=== PATIENT | male | born 1955 | race Two or more races ===

== ENCOUNTER 2019-02-12 09:25 | Inpatient (IN) | payer BC ==
[~2019-02-12] VITALS: Ht 170.2 cm; Wt 81.6 kg
--- OUTSIDE RECORDS SUMMARY | 2019-02-12 09:27 | XMS REPORT | Clinical Summary ---
Author Author [employer] Address Unknown Phone Unavailable Care Team Providers Care Commutator Undercutter Name Role Phone Asked, No Pcp PCP Unavailable Allergies No Known Allergies Medications End Date Status Medication Sig Dispensed Refills Start Date Active metFORMIN (GLUCOPHAGE) Take 500 mg 0 500 mg tablet by mouth 2 (two) times a day with meals. Active enalapril (VASOTEC) 5 MG Take 5 mg by 0 tablet mouth daily. Active naproxen (NAPROSYN) 500 Take 500 mg 0 MG tablet by mouth every 12 (twelve) hours as needed for mild pain. Active gabapentin (NEURONTIN) Take 300 mg 0 300 mg capsule by mouth nightly. Active rosuvastatin (CRESTOR) 20 Take 20 mg by 0 MG tablet mouth daily. Active Problems Problem Noted Date Chest discomfort 02/11/2018 CAD S/P percutaneous coronary angioplasty 02/10/2018 Encounters Care Team Description Date Type Specialty Agnieszka An MD Hadidi, Fayez H., MD 02/10/2018 Hospital Surgical Intensive Care - Encounter 02/11/2018 after 02/11/2018 Family History Medical History Relation Name Comments Diabetes Father Stroke and Kidney Hypertension Father Stroke and Kidney Relation Name Status Comments Father Stroke and Kidney Social History Date Tobacco Use Types Packs/Day Years Used Current Every Day Smoker 1.5 40 Smokeless Tobacco: Never Used Alcohol Use Drinks/Week oz/Week Comments No Sex Assigned at Date Recorded Not on file Industry Job Start Date Occupation Not on file Not on file Not on file Travel End Travel History Travel Start No recent travel history available. Last Filed Vital Signs Time Taken Vital Sign Reading 02/11/2018 3:50 PM CDT Blood Pressure 123/67 02/11/2018 3:50 PM CDT Pulse 71 02/11/2018 12:00 PM CDT Temperature 36.9 C (98.4 F) 02/11/2018 2:30 PM CDT Respiratory Rate 32 02/11/2018 2:15 PM CDT Oxygen Saturation 99% - Inhaled Oxygen - Concentration - Weight - - Height - - Body Mass Index - Plan of Treatment Not on file Implants Device Identifier Shelf Expiration Date Model / Serial / Lot Implanted Type Area Manufactur er [id number] / / System Athrctmy Rotn 0.58in 135cm Cardiovasc N/A: N/A BSC 1.5mm [address]ink [address] - [id number] ular INTERVENTI Implanted: 02/11/2018 (Quantity not Implants ONAL on file) CARDIOLOGY [id number] / / Stent Cornorary Syst Synergy (Mr) Coronary N/A: N/A BSC 2.50mm X 32mm - [id number] Stents INTERVENTI Implanted: 02/10/2018 (Quantity not ONAL on file) CARDIOLOGY Procedures Comments Procedure Name Priority Date/Time Associated Diagnosis POC GLUCOSE Routine 02/11/2018 12:26 PM CDT POC GLUCOSE Routine 02/11/2018 7:36 AM CDT ZZESTIMATED GFR Routine 02/11/2018 4:25 AM CDT MAGNESIUM LEVEL Routine 02/11/2018 4:25 AM CDT PHOSPHORUS LEVEL Routine 02/11/2018 4:25 AM CDT BASIC METABOLIC PANEL Routine 02/11/2018 4:25 AM CDT HC COMPLETE BLD COUNT Routine 02/11/2018 W/AUTO DIFF 4:25 AM CDT after 02/11/2018 Results * POC glucose (02/11/2018 12:26 PM CDT) Only the most recent of 2 results within the time period is included. [facility] POC glucose 225 (H) 65 - 100 mg/dL [facility] Comment: OF PATHOLOGY Meter ID: [id number] AND GENOMIC Blasting Helper: Oneyda Rodriguez MEDICINE Specimen Performing Organization Address City/State/Zipcode Phone Number [facility] [place] [address] [place] [address] PATHOLOGY AND GENOMIC MEDICINE * Estimated GFR (02/11/2018 4:25 AM CDT) [facility] GFR Non Af Amer 75 mL/min/1.73 m2 [facility] [place]Y AND GENOMIC MEDICINE GFR Af Amer >90 mL/min/1.73 m2 [facility] Comment: OF PATHOLOGY Chronic kidney disease: <60 AND GENOMIC mL/min/1.73m2 MEDICINE Kidney failure: <15 mL/min/1.73m2 The estimated GFR is calculated from the IDMS-traceable Modification of Diet in Renal Disease Equation. The accuracy of the calculation is poor when the creatinine is normal. Calculated values >90 mL/min/1.73m2 are not reported. This equation has not been validated in children (<18 years), women, the elderly (>70 years), or ethnic groups other than Caucasians and Americans. Specimen Plasma specimen Performing Organization Address City/State/Zipcode Phone Number [place] [address] [place] [address] PATHOLOGY AND GENOMIC MEDICINE * CBC with platelet and differential (02/11/2018 4:25 AM CDT) [facility] WBC 6.5 4.2 - 11.0 k/uL [facility] [place]Y AND GENOMIC MEDICINE RBC 4.36 4.04 - 5.86 m/uL [facility] PATHOLOGY AND GENOMIC MEDICINE HGB 11.8 (L) 13.0 - 17.3 g/dL [facility] [place]Y AND GENOMIC MEDICINE HCT 37.6 34.0 - 45.0 % [facility]Y AND GENOMIC MEDICINE MCV 86.2 80.0 - 98.0 fL [facility]Y AND GENOMIC MEDICINE MCH 27.1 27.0 - 34.0 pg [facility]OLOGY AND GENOMIC MEDICINE MCHC 31.4 (L) 31.5 - 36.5 g/dL [facility] [place]Y AND GENOMIC MEDICINE RDW - SD 44.3 37.0 - 51.0 fL [facility]Y AND GENOMIC MEDICINE MPV 11.4 (H) 7.4 - 10.4 fL [facility]Y AND GENOMIC MEDICINE Platelet count 134 (L) 150 - 400 k/uL [facility]Y AND GENOMIC MEDICINE Nucleated RBC 0.00 /100 WBC [facility] [place]Y AND GENOMIC MEDICINE Neutrophils 63.6 36.0 - 66.0 % [facility]Y AND GENOMIC MEDICINE Lymphocytes 22.6 (L) 24.0 - 44.0 % [facility] DEPARTMENT OF PATHOLOGY AND GENOMIC MEDICINE Monocytes 9.9 (H) 0.0 - 6.0 % [facility] [place]Y AND GENOMIC MEDICINE Eosinophils 2.3 0.0 - 6.0 % [facility] [place]OLOGY AND GENOMIC MEDICINE Basophils 1.1 0.0 - 1.2 % [facility] [place]OLOGY AND GENOMIC MEDICINE Immature 0.5 0.0 - 1.0 % [facility] granulocytes OF PATHOLOGY AND GENOMIC MEDICINE Specimen Blood Performing Organization Address City/[facility] [place] [address] PATHOLOGY AND GENOMIC MEDICINE * Phosphorus level (02/11/2018 4:25 AM CDT) Phosphorus 3.1 2.5 - 4.5 mg/dL [facility] [place]Y AND GENOMIC MEDICINE Specimen Plasma specimen Performing Organization Address City/[facility] [place] [address] PATHOLOGY AND [facility] * Magnesium level (02/11/2018 4:25 AM CDT) Magnesium 2.00 1.60 - 2.40 mg/dL [facility] [place]OLOGY AND GENOMIC MEDICINE Specimen Plasma specimen Performing Organization Address [facility] [place] [address] [facility] * Basic metabolic panel (02/11/2018 4:25 AM CDT) Sodium 140 135 - 150 mEq/L [facility] [place]OLOGY AND GENOMIC MEDICINE Potassium 4.9 3.5 - 5.0 mEq/L [facility] [place]OLOGY AND GENOMIC MEDICINE Chloride 106 100 - 109 mEq/L [facility]OLOGY AND GENOMIC MEDICINE CO2 27 24 - 32 mmol/L [facility]OLOGY AND GENOMIC MEDICINE Anion gap 7@ANIO 7 - 15 mEq/L [facility]OLOGY AND GENOMIC MEDICINE BUN 13 7 - 18 mg/dL [facility]OLOGY AND GENOMIC MEDICINE Creatinine 1.0 0.8 - 1.5 mg/dL [facility]Y AND GENOMIC MEDICINE Glucose 123 (H) 65 - 100 mg/dL [facility]Y AND GENOMIC MEDICINE Calcium 9.2 8.6 - 10.7 mg/dL [facility] [place]OLOGY AND GENOMIC MEDICINE Specimen Plasma specimen Performing Organization Address City/[facility] Cent[facility] Phone Number [place] [phone] [place] [address] PATHOLOGY AND GENOMIC MEDICINE after 02/11/2018 Insurance Type Payer Benefit Subscriber ID Effective Phone Address Plan / Dates Group Exchange BCBS EXCHANGE BLUE xxxxxxxxxxxx 2018-P ADVANTAGE resent HMO EXCH Advance Directives Patient has advance care planning documents, and code status on file. For more i nformation, please contact: Nate Alvarado [address] [place] [address] Date Inactivated Comments Code Status Date Activated 02/11/2018 8:42 PM Full Code 02/11/2018 3:14 PM Code Status decision reached by: Patient
[2019-02-12 10:55] LABS: BASOPHILS # (AUTO) 0.1 (0.0-0.1); BASOPHILS % 0.8 % (0.0-1.0); EOSINOPHILS # (AUTO) 0.2 (0.0-0.4); EOSINOPHILS % 3.1 % (0.0-6.0); HEMATOCRIT 29.8 % (38.2-49.6); HEMOGLOBIN 9.6 g/dL (14.0-18.0); LYMPHOCYTES # (AUTO) 1.6 (1.0-3.2); LYMPHOCYTES % 27.8 % (18.0-39.1); MEAN CORPUSCULAR HEMOGLOBIN 28.2 pg (28-32); MEAN CORPUSCULAR HGB CONC 32.2 g/dL (31-35); MEAN CORPUSCULAR VOLUME 87.4 fL (81-99); MONOCYTES # (AUTO) 0.5 (0.2-0.8); MONOCYTES % 8.6 % (4.4-11.3); NEUTROPHILS # (AUTO) 3.5 (2.1-6.9); NEUTROPHILS % 59.2 % (38.7-80.0); PLATELET COUNT 173 x10e3/uL (140-360); RED BLOOD COUNT 3.41 x10e6/uL (4.3-5.7); RED CELL DISTRIBUTION WIDTH 14.7 % (11.7-14.4)
[2019-02-12 11:05] LABS: INR 1.01; PARTIAL THROMBOPLASTIN TIME 28.7 seconds (23.8-35.5); PROTHROMBIN TIME 13.8 seconds (11.9-14.5)
[2019-02-12 11:14] LABS: ALANINE AMINOTRANSFERASE 15 IU/L (0-55); ALBUMIN 3.9 g/dL (3.5-5.0); ALBUMIN/GLOBULIN RATIO 1.4 (0.8-2.0); ALKALINE PHOSPHATASE 64 IU/L (40-150); ANION GAP 13.4 mmol/L (8-16); BLOOD UREA NITROGEN 25 mg/dL (7-26); BUN/CREATININE RATIO 16 (6-25); CALCIUM 10.1 mg/dL (8.4-10.2); CARBON DIOXIDE 23 mmol/L (22-29); CHLORIDE 106 mmol/L (98-107); CREATINE KINASE 43 IU/L (30-200); CREATININE, SERUM 1.53 mg/dL (0.72-1.25); EST GLOMERULAR FILTRATION RATE 46 ML/MIN (60-); GLUCOSE 99 mg/dL (74-118); SODIUM 136 mmol/L (136-145)
[2019-02-12 11:21] LABS: POTASSIUM 6.4 mmol/L (3.5-5.1)
[2019-02-12] MEDS ORDERED: DEXTROSE 50% SYRINGE 50 ML IV STA (11:27)
[2019-02-12] MEDS ORDERED: SOD POLYSTYRENE SULFONATE SUSP 15 GM/60 ML BTL PO ONE (11:30)
[2019-02-12] MEDS ORDERED: INSULIN REGULAR, HUMAN 100 UNIT/1 ML 3ML VIAL IV ONE (11:30)
[2019-02-12] MEDS ORDERED: CLOPIDOGREL75 MG PO (12:37)
[2019-02-12] MEDS ORDERED: GEMFIBROZIL600 MG PO (12:37)
[2019-02-12] MEDS ORDERED: LOPRESSOR25 MG PO (12:37)
[2019-02-12] MEDS ORDERED: METFORMIN HCL1000 MG PO (12:37)
[2019-02-12] MEDS ORDERED: ISOSORBIDE MONO10 MG PO (12:37)
[2019-02-12] MEDS ORDERED: ATORVASTATIN CA40 MG PO (12:37)
[2019-02-12] MEDS ORDERED: VASOTEC5 MG PO (12:37)
[2019-02-12] MEDS ORDERED: GABAPENTIN300 MG PO (12:37)
[2019-02-12] MEDS ORDERED: PANTOPRAZOLE SO40 MG PO (12:37)
[2019-02-12] MEDS ORDERED: NAPROXEN500 MG PO (12:37)
--- OUTSIDE RECORDS SUMMARY | 2019-02-12 13:06 | XMS REPORT | Clinical Summary ---
Author Author [employer] Address Unknown Phone Unavailable Care Team Providers Care Can Bander Operator Name Role Phone Asked, No Pcp PCP [...] / Lot Implanted Type Area Manufactur er [id number] / / System Athrctmy Rotn 0.58in 135cm Cardiovasc N/A: N/A BSC 1.5mm [address] - [id number] ular INTERVENTI Implanted: 02/11/2018 (Quantity not Implants ONAL on file) CARDIOLOGY [id number] / / Stent Cornorary Syst Synergy (Mr) Coronary N/A: N/A BSC 2.50mm X 32mm - [id number] Stents INTERVENTI Implanted: 02/10/2018 (Quantity not ONAL [...] results within the time period is included. [facility] POC glucose 225 (H) 65 - 100 mg/dL [facility] Comment: OF PATHOLOGY Meter ID: [id number] AND GENOMIC Field Liability Generalist: Oneyda Rodriguez MEDICINE Specimen Performing Organization Address City/State/Zipcode Phone Number [facility] DE[facility] OF [address] [place] [address] PATHOLOGY AND GENOMIC MEDICINE * Estimated GFR (02/11/2018 4:25 AM CDT) [facility] GFR Non Af Amer 75 mL/min/1.73 m2 [facility] OF PATHOLOGY AND GENOMIC MEDICINE GFR Af Amer >90 mL/min/1.73 m2 [facility] Comment: OF PATHOLOGY Chronic kidney disease: [...] specimen Performing Organization Address City/State/Zipcode Phone Number [place] [phone] [place] [address] PATHOLOGY AND GENOMIC MEDICINE * CBC with platelet and differential (02/11/2018 4:25 AM CDT) [facility] WBC 6.5 4.2 - 11.0 k/uL [facility] OF PATHOLOGY AND GENOMIC MEDICINE RBC 4.36 4.04 - 5.86 m/uL [facility] PATHOLOGY AND GENOMIC MEDICINE HGB 11.8 (L) 13.0 - 17.3 g/dL [facility] OF PATHOLOGY AND GENOMIC MEDICINE HCT 37.6 34.0 - 45.0 % [facility] OF PATHOLOGY AND GENOMIC MEDICINE MCV 86.2 80.0 - 98.0 fL [facility] OF PATHOLOGY AND GENOMIC MEDICINE MCH 27.1 27.0 - 34.0 pg [facility] OF PATHOLOGY AND GENOMIC MEDICINE MCHC 31.4 (L) 31.5 - 36.5 g/dL [facility] OF PATHOLOGY AND GENOMIC MEDICINE RDW - SD 44.3 37.0 - 51.0 fL [facility]MENT OF PATHOLOGY AND GENOMIC MEDICINE MPV 11.4 (H) 7.4 - 10.4 fL [facility] OF PATHOLOGY AND GENOMIC MEDICINE Platelet count 134 (L) 150 - 400 k/uL [facility]PARTMENT OF PATHOLOGY AND GENOMIC MEDICINE Nucleated RBC 0.00 /100 WBC [facility] OF PATHOLOGY AND GENOMIC MEDICINE Neutrophils 63.6 36.0 - 66.0 % [facility]MENT OF PATHOLOGY AND GENOMIC MEDICINE Lymphocytes 22.6 (L) 24.0 - 44.0 % [facility] DEPARTMENT OF PATHOLOGY AND GENOMIC MEDICINE Monocytes 9.9 (H) 0.0 - 6.0 % [facility] DE[facility]MENT OF PATHOLOGY AND GENOMIC MEDICINE Eosinophils 2.3 0.0 - 6.0 % [facility]MENT OF PATHOLOGY AND GENOMIC MEDICINE Basophils 1.1 0.0 - 1.2 % [facility]MENT OF PATHOLOGY AND GENOMIC MEDICINE Immature 0.5 0.0 - 1.0 % [facility] granulocytes OF PATHOLOGY AND GENOMIC MEDICINE Specimen Blood Performing Organization Address City/[facility] Hospital[place] [address] PATHOLOGY AND GENOMIC MEDICINE * Phosphorus level (02/11/2018 4:25 AM CDT) Phosphorus 3.1 2.5 - 4.5 mg/dL [facility] OF PATHOLOGY AND GENOMIC MEDICINE Specimen Plasma specimen Performing Organization Address City/[facility] [place] [address] PATHOLOGY AND [facility] * Magnesium level (02/11/2018 4:25 AM CDT) Magnesium 2.00 1.60 - 2.40 mg/dL [facility]MENT OF PATHOLOGY AND GENOMIC MEDICINE Specimen Plasma specimen Performing Organization Address [facility] [place] [address] PATHOLOGY [facility] * Basic metabolic panel (02/11/2018 4:25 AM CDT) Sodium 140 135 - 150 mEq/L [facility]PARTMENT OF PATHOLOGY AND GENOMIC MEDICINE Potassium 4.9 3.5 - 5.0 mEq/L [facility]MENT OF PATHOLOGY AND GENOMIC MEDICINE Chloride 106 100 - 109 mEq/L [facility] OF PATHOLOGY AND GENOMIC MEDICINE CO2 27 24 - 32 mmol/L [facility]MENT OF PATHOLOGY AND GENOMIC MEDICINE Anion gap 7@ANIO 7 - 15 mEq/L [facility] DE[facility]MENT OF PATHOLOGY AND GENOMIC MEDICINE BUN 13 7 - 18 mg/dL [facility]MENT OF PATHOLOGY AND GENOMIC MEDICINE Creatinine 1.0 0.8 - 1.5 mg/dL [facility]MENT OF PATHOLOGY AND GENOMIC MEDICINE Glucose 123 (H) 65 - 100 mg/dL [facility]MENT OF PATHOLOGY AND GENOMIC MEDICINE Calcium 9.2 8.6 - 10.7 mg/dL [facility] OF PATHOLOGY AND GENOMIC MEDICINE Specimen Plasma specimen Performing Organization Address City/[facility] Phone Number [place] [phone] [place] [address] PATHOLOGY AND GENOMIC MEDICINE after 02/11/2018 Insurance Type Payer Benefit Subscriber ID Effective Phone Address Plan / Dates Group Exchange BCBS EXCHANGE BLUE xxxxxxxxxxxx 2018-P ADVANTAGE resent HMO EXCH Advance Directives Patient has advance care planning documents, and code status on file. For more i nformation, please contact: Nate Alvarado [address] [place] [address] Date Inactivated Comments Code Status Date Activated 02/11/2018 8:42 PM Full Code 02/11/2018 3:14 PM Code Status decision reached by: Patient
[2019-02-12] MEDS ORDERED: DEXTROSE 50% SYRINGE 50 ML IV PRN (14:30)
[2019-02-12 14:45] VITALS: BP 108/60
--- NOTE | 2019-02-12 15:46 | Diagnostic Imaging Report ---
EXAMINATION: PA and lateral views of the chest. COMPARISON: None CLINICAL HISTORY: Lower GI bleed DISCUSSION: Lungs are well-inflated and without focal airspace consolidation, pleural effusion, or pneumothorax. Cardiomediastinal contour and pulmonary vasculature are within normal limits. No acute osseous abnormality. IMPRESSION: No acute cardiopulmonary abnormalities. Signed by: Dr. Marck Sexton M.D. on 02/12/2019 3:43 PM
[2019-02-12 16:13] VITALS: BP 108/60
[2019-02-12] MEDS: INSULIN REGULAR, HUMAN 100 UNIT/1 ML 3ML VIAL SQ SCH ×2 (16:30→20:55)
[2019-02-12 16:41] LABS: ANION GAP 12.8 mmol/L (8-16); CALCIUM 9.6 mg/dL (8.4-10.2); CREATININE, SERUM 1.44 mg/dL (0.72-1.25); POTASSIUM 4.8 mmol/L (3.5-5.1)
[2019-02-12] MEDS ORDERED: PROTONIX 200MG/SODIUM CHLORIDE 0.9% 250 ML BAG IV SCH (16:45)
[2019-02-12] MEDS ORDERED: FUROSEMIDE INJ 10 MG/ML 2 ML VIAL IV SCH (16:45)
[2019-02-12] MEDS ORDERED: SODIUM CHLORIDE 0.9% 250ML 250 ML IV ONE (16:45)
[2019-02-12 19:09] VITALS: BP 127/58
[2019-02-12 19:22] VITALS: BP 127/58
[2019-02-12 20:02] LABS: ANION GAP 11.8 mmol/L (8-16); CALCIUM 9.6 mg/dL (8.4-10.2); CREATININE, SERUM 1.45 mg/dL (0.72-1.25); POTASSIUM 4.8 mmol/L (3.5-5.1)
[2019-02-12] MEDS: ATORVASTATIN 40 MG TAB PO SCH (20:55)
[2019-02-12 21:13] LABS: HEMATOCRIT 26.8 % (38.2-49.6); HEMOGLOBIN 8.7 g/dL (14.0-18.0)
[2019-02-12] MEDS: PANTOPRAZOL 40MG/SOD CHL 0.9% 50 ML IV SCH (21:56)
[2019-02-12 23:25] VITALS: BP 116/56
[2019-02-13] VITALS (7 sets, daily range): BP systolic 91–140; BP diastolic 53–64
[2019-02-13] MEDS: PANTOPRAZOL 40MG/SOD CHL 0.9% 50 ML IV SCH ×6 (00:30→23:33)
[2019-02-13 06:42] LABS: HEMATOCRIT 28.5 % (38.2-49.6); HEMOGLOBIN 9.2 g/dL (14.0-18.0)
[2019-02-13 07:20] LABS: FOLATE 16.4 ng/mL (7.0-15.4)
[2019-02-13] MEDS: INSULIN REGULAR, HUMAN 100 UNIT/1 ML 3ML VIAL SQ SCH ×4 (07:30→20:20)
--- NOTE | 2019-02-13 07:53 | Consultation ---
DATE OF CONSULTATION: 02/13/2019 HISTORY OF PRESENT ILLNESS: The patient is a pleasant 63-year-old gentleman, who has underlying history of long-standing diabetes, hypertension, coronary artery disease, status post PCI and stenting. Denies prior history of any renal insufficiency or kidney stone disease, presented with bleeding per rectum. He is being worked up for GI bleed. Currently lying supine in no apparent distress. Denies any urinary complaints. Denies shortness of breath, nausea, or vomiting. He has had prior history of hemorrhoids many years ago. SOCIAL HISTORY: He is . Smokes tobacco. Denies drinking. FAMILY HISTORY: Significant for hypertension. ALLERGIES: NO APPARENT DRUG ALLERGIES. CURRENT MEDICATIONS: The patient is on insulin, metoprolol 25 mg daily, isosorbide 10 mg daily, gemfibrozil 600 mg p.o. daily, which I am going to stop, gabapentin 300 mg daily, enalapril 5 mg p.o. daily, atorvastatin 40 mg at bedtime, and pantoprazole IV. PHYSICAL EXAMINATION: GENERAL: Awake, alert, lying supine in no apparent distress. VITAL SIGNS: Blood pressure of 127/50, pulse rate 70, and afebrile. HEAD AND NECK: Cornea clear. Oral mucosa moist. Neck veins are flat. LUNGS: Occasional end-expiratory rhonchi. Occasional rales at right base. HEART: S1, S2 audible. ABDOMEN: Soft, nontender. No apparent visceromegaly. EXTREMITIES: Lower extremity, no edema. IMPRESSION AND PLAN: Hyperkalemia, resolved. Acute kidney injury. Serum creatinine 1.45, potassium down to 4.8, hemoglobin 9.2 and stable. Coags within normal limits. The etiology of acute kidney injury is multifactorial, muscular hypertensive, diabetic nephropathy with an acute injury, renal injury component. Appears relatively dry on exam. We will start IV fluids in the form of normal saline. Continue with enalapril for now. Discontinue gemfibrozil for his long-standing renal side effects. Discussed with the patient in detail. Please see orders. MD ANITRA Hillman/[facility] /[id number]
[2019-02-13 08:10] LABS: FERRITIN 18.73 ng/mL (21.81-274.66)
[2019-02-13] MEDS ORDERED: NON-FORMULARY MEDICATION (Atorvastatin Calcium 40 MG) PO SCH (09:00)
[2019-02-13] MEDS ORDERED: GEMFIBROZIL 600 MG TAB PO SCH (09:00)
[2019-02-13] MEDS ORDERED: NON-FORMULARY MEDICATION (Isosorbide Mononitrate 10 MG) PO SCH (09:00)
[2019-02-13] MEDS ORDERED: PANTOPRAZOLE 40 MG 10ML VIAL IV SCH (09:00)
[2019-02-13] MEDS: SODIUM CHLORIDE 0.9% 1000ML 1,000 ML IV SCH ×2 (09:00→18:33)
[2019-02-13] MEDS: ISOSORBIDE DINITRATE 20 MG TAB PO SCH (09:20)
[2019-02-13] MEDS: METOPROLOL TARTRATE 25 MG TAB PO SCH (09:23)
[2019-02-13] MEDS: GABAPENTIN 300 MG CAP PO SCH (09:23)
[2019-02-13] MEDS: ENALAPRIL MALEATE 5 MG TAB PO SCH (09:23)
[2019-02-13 11:50] LABS: HEMATOCRIT 25.7 % (38.2-49.6); HEMOGLOBIN 8.4 g/dL (14.0-18.0)
[2019-02-13 13:44] LABS: WBC,FECAL (FECAL LACTOFERRIN) POSITIVE (NEGATIVE)
[2019-02-13 14:52] LABS: C DIFFICILE TOXIN A&B AMP PROB NEGATIVE (NEGATIVE)
[2019-02-13 17:56] LABS: HEMATOCRIT 27.1 % (38.2-49.6); HEMOGLOBIN 8.5 g/dL (14.0-18.0)
[2019-02-13 19:25] LABS: BILIRUBIN,URINE NEGATIVE (NEGATIVE); CLARITY,URINE CLEAR (CLEAR); COLOR,URINE YELLOW (YELLOW); KETONES,URINE NEGATIVE (NEGATIVE); LEUKOCYTE ESTERASE ,URINE NEGATIVE (NEGATIVE); NITRITE,URINE NEGATIVE (NEGATIVE); PROTEIN,URINE DIPSTICK NEGATIVE (NEGATIVE); URINE UROBILINOGEN 0.2 mg/dL (0.2 - 1)
[2019-02-13 19:39] LABS: BACTERIA,URINE RARE /HPF; EPITHELIAL CELLS,URINE RARE /LPF; RBC,URINE 0-5 /HPF (0-5); WBC,URINE (MAN) 0-5 /HPF (0-5)
[2019-02-13 20:13] LABS: CREATININE,URINE RANDOM 49.01 mg/dL (63-166)
[2019-02-13 20:15] LABS: TOTAL PROTEIN, URINE < 6.8 mg/dL (1-14)
[2019-02-13] MEDS: ATORVASTATIN 40 MG TAB PO SCH (20:20)
[2019-02-14] VITALS (10 sets, daily range): BP systolic 103–172; BP diastolic 53–83
[2019-02-14] MEDS ORDERED: IRON SUCROSE 100 MG in SODIUM CHLORIDE 0.9% 100 ML 100 ML IV SCH (00:30)
[2019-02-14 00:35] LABS: HEMATOCRIT 24.9 % (38.2-49.6)
[2019-02-14] MEDS: PANTOPRAZOL 40MG/SOD CHL 0.9% 50 ML IV SCH ×4 (04:13→19:26)
[2019-02-14] MEDS: SODIUM CHLORIDE 0.9% 1000ML 1,000 ML IV SCH ×2 (04:43→15:08)
[2019-02-14 06:19] LABS: HEMATOCRIT 26.2 % (38.2-49.6); HEMOGLOBIN 8.2 g/dL (14.0-18.0)
[2019-02-14 06:43] LABS: ALBUMIN 3.3 g/dL (3.5-5.0); ALBUMIN/GLOBULIN RATIO 1.3 (0.8-2.0); ANION GAP 10.8 mmol/L (8-16); CREATININE, SERUM 1.37 mg/dL (0.72-1.25); POTASSIUM 4.8 mmol/L (3.5-5.1)
[2019-02-14] MEDS: INSULIN REGULAR, HUMAN 100 UNIT/1 ML 3ML VIAL SQ SCH ×4 (07:30→20:40)
[2019-02-14] MEDS: ISOSORBIDE DINITRATE 20 MG TAB PO SCH (09:15)
[2019-02-14] MEDS: METOPROLOL TARTRATE 25 MG TAB PO SCH (09:15)
[2019-02-14] MEDS: GABAPENTIN 300 MG CAP PO SCH (09:15)
[2019-02-14] MEDS: ENALAPRIL MALEATE 5 MG TAB PO SCH (09:16)
[2019-02-14] MEDS: CYANOCOBALAMIN 1,000 MCG TAB PO SCH (09:16)
[2019-02-14] MEDS: IRON SUCROSE 100 MG in SODIUM CHLORIDE 0.9% 100 ML 100 ML IV SCH (10:00)
[2019-02-14 12:07] LABS: HEMATOCRIT 25.2 % (38.2-49.6); HEMOGLOBIN 8.1 g/dL (14.0-18.0)
[2019-02-14] MEDS ORDERED: PEG (High)/E-LYTE SOLN 4,000 ML BTL PO ONE (14:00)
[2019-02-14] MEDS: ATORVASTATIN 40 MG TAB PO SCH (20:39)
[2019-02-15] VITALS (7 sets, daily range): BP systolic 129–141; BP diastolic 27–65
[2019-02-15] MEDS: PANTOPRAZOL 40MG/SOD CHL 0.9% 50 ML IV SCH ×5 (00:30→21:00)
[2019-02-15 00:37] LABS: HEMOGLOBIN 7.7 g/dL (14.0-18.0)
[2019-02-15] MEDS: SODIUM CHLORIDE 0.9% 1000ML 1,000 ML IV SCH ×3 (01:18→16:33)
[2019-02-15 05:59] LABS: HEMATOCRIT 24.8 % (38.2-49.6); HEMOGLOBIN 7.7 g/dL (14.0-18.0)
[2019-02-15] MEDS: INSULIN REGULAR, HUMAN 100 UNIT/1 ML 3ML VIAL SQ SCH ×4 (07:30→21:00)
[2019-02-15] MEDS: ISOSORBIDE DINITRATE 20 MG TAB PO SCH (09:00)
[2019-02-15] MEDS: ENALAPRIL MALEATE 5 MG TAB PO SCH (09:00)
[2019-02-15] MEDS: GABAPENTIN 300 MG CAP PO SCH (09:00)
[2019-02-15] MEDS: CYANOCOBALAMIN 1,000 MCG TAB PO SCH (09:00)
[2019-02-15] MEDS: METOPROLOL TARTRATE 25 MG TAB PO SCH (09:00)
--- NOTE | 2019-02-15 10:16 | Diagnostic Imaging Report ---
EXAM: Renal Ultrasound INDICATION: RODERICK. COMPARISON: None TECHNIQUE: Transverse and longitudinal images of the kidneys and bladder were obtained. FINDINGS: Right Kidney: Length: Measures 12.5 x 5.5 x 5.2 cm Appearance: Normal echogenicity. Collecting system: No hydronephrosis Stones: None Cyst/Mass: No evidence of solid mass. There is a predominately simple appearing anechoic cyst in the upper pole, measuring up to 5.5 cm, with a possible internal calcification versus artifact. There is a simple appearing anechoic mid pole cyst, measuring up to 1.7 cm. Left Kidney: Length: Measures 12.5 x 5.4 x 4.4 cm Appearance: Normal echogenicity. Collecting system: No hydronephrosis Stones: None Cyst/Mass: No evidence of solid mass. There is a minimally complex cyst in the midpole, measuring up to 2.9 cm which contains an internal septation with possible calcification. Bladder: Unremarkable in appearance. Left ureteral jet is visualized. Right ureteral jet is not visualized. The prevoid volume is 215 cc. Prostate: Measures 2.5 x 2.4 x 2.0 cm. IMPRESSION: No evidence of hydronephrosis. Bilateral renal cysts as above with minimal complexity in the left mid pole. Suggest follow-up ultrasound in 6 months. Signed by: Dr. Naima Hazel MD on 02/15/2019 10:12 AM
[2019-02-15] MEDS: IRON SUCROSE 100 MG in SODIUM CHLORIDE 0.9% 100 ML 100 ML IV SCH ×2 (13:51→14:03)
[2019-02-15 14:11] LABS: HEMATOCRIT 25.5 % (38.2-49.6); HEMOGLOBIN 8.2 g/dL (14.0-18.0)
[2019-02-15] MEDS ORDERED: GLUCAGON FOR INJ 1 MG VIAL ONE (17:41)
[2019-02-15] MEDS ORDERED: PROPOFOL IV EMULSION 10 MG/ML 50 ML VIAL ONE (17:41)
[2019-02-15] MEDS ORDERED: LIDOCAINE HCL 2% LOCAL INJ 5 ML SDV VIAL INJ ONE (17:41)
[2019-02-15] MEDS ORDERED: HYOSCYAMINE SULFATE 0.5 MG/ML INJ ONE (17:41)
[2019-02-15] MEDS ORDERED: EPHEDRINE SULFATE INJ 50 MG/10 ML SYR ONE (17:41)
[2019-02-15] MEDS ORDERED: PHENYLEPHRINE HCL 1% 10 MG/ML VIAL ONE (17:41)
[2019-02-15] MEDS ORDERED: MIDAZOLAM HCL 2 MG/2 ML VIAL ONE (19:01)
[2019-02-15] MEDS ORDERED: FENTANYL CITRATE/PF 100MCG/2 ML INJ ONE (19:01)
[2019-02-15 20:32] LABS: HEMATOCRIT 24.9 % (38.2-49.6); HEMOGLOBIN 7.8 g/dL (14.0-18.0)
--- NOTE | 2019-02-15 20:44 | Operative Report ---
DATE OF PROCEDURE: 02/15/2019 SURGEON: Clark Leal MD PROCEDURES: EGD with biopsies and a colonoscopy with biopsies and fulguration with a size 10-Serbian gold probe and hemoclipping. INDICATIONS FOR EGD: Dyspepsia. INDICATIONS FOR COLONOSCOPY: Rectal bleeding. MEDICATIONS: The patient was done under MAC, please see anesthesiologist's note. PROCEDURE IN DETAIL: With the patient in left lateral decubitus position, a flexible fiberoptic Olympus gastroscope was introduced into the esophagus under direct visualization without any difficulty. There was some patchy erythema noted in distal esophagus. The scope was then advanced with ease into the stomach traversing a small hiatal hernia. Mucosa overlying the antrum and the body revealed some patchy erythema and low-grade edema and biopsies were obtained, sent to stain for H. pylori. The pylorus was of normal contour and shape, it was intubated with ease and the scope was advanced all the way to the second portion of the duodenum. Biopsies were obtained from the second portion as well as from the duodenal bulb to rule out sprue. The scope was then withdrawn back into the stomach and retroflexed mucosa overlying the fundus and cardia appeared to be within normal limits. The scope was then straightened out, it was subsequently withdrawn. The patient tolerated the procedure well. IMPRESSION: 1. Distal esophagitis, mild. 2. Small hiatal hernia. 3. Gastritis, biopsied. Biopsies sent to stain for Helicobacter pylori. 4. Rule out sprue. PLAN: Follow up histology. Initiate Protonix 40 mg one p.o. q.a.m. a.c. PROCEDURE IN DETAIL: The patient was then turned around and after adequate lubrication of the anal canal, a flexible fiberoptic Olympus colonoscope was inserted into the rectum with ease and advanced all the way to the cecum. Scattered diverticular disease was noted throughout, but was more pronounced in the left colon. The mucosa overlying the cecum appeared to be within normal limits. There was an ulcerated AVM noted in the proximal ascending colon that was biopsied and it bled persistently post biopsy. Site was fulgurated to a size 10-Serbian gold probe and hemoclipped to size 16 hemoclip. Other than for diverticulosis in the ascending and the transverse as well as the proximal descending appeared to be within normal limits. The distal descending and sigmoid revealed some patchy mild inflammatory changes and random biopsies were obtained. The rectum grossly appeared to be within normal limits. The scope was then retroflexed into the distal rectum and moderate-sized internal hemorrhoids were noted, none of which was actively bleeding. The scope was then straightened out. It was subsequently withdrawn. The patient tolerated the procedure well. IMPRESSION: 1. Pandiverticulosis. 2. Ulcerated AVM, proximal ascending colon, biopsied, bled, fulgurated with size 10-Serbian gold probe and hemoclip was size 16 with excellent hemostasis. 3. Mild patchy segmental colitis, left colon. Biopsies obtained. 4. Internal hemorrhoids none actively bleeding. PLAN: Followup histology. Initiate GI soft diet. The patient might benefit from a followup colonoscopy in 5 years. Clark Leal MD [facility] /[id number] cc: Benita Gutiérrez MD
[2019-02-15] MEDS: ATORVASTATIN 40 MG TAB PO SCH (21:00)
[2019-02-16] VITALS (8 sets, daily range): BP systolic 97–120; BP diastolic 52–59
[2019-02-16] MEDS: SODIUM CHLORIDE 0.9% 1000ML 1,000 ML IV SCH (02:00)
[2019-02-16] MEDS: PANTOPRAZOL 40MG/SOD CHL 0.9% 50 ML IV SCH ×5 (02:00→23:30)
[2019-02-16 07:21] LABS: ALBUMIN 3.4 g/dL (3.5-5.0); ALBUMIN/GLOBULIN RATIO 1.3 (0.8-2.0); ANION GAP 12.9 mmol/L (8-16); CREATININE, SERUM 1.31 mg/dL (0.72-1.25); POTASSIUM 3.9 mmol/L (3.5-5.1)
[2019-02-16] MEDS: INSULIN REGULAR, HUMAN 100 UNIT/1 ML 3ML VIAL SQ SCH ×3 (08:00→21:00)
[2019-02-16] MEDS: ISOSORBIDE DINITRATE 20 MG TAB PO SCH (09:07)
[2019-02-16] MEDS: GABAPENTIN 300 MG CAP PO SCH (09:07)
[2019-02-16] MEDS: METOPROLOL TARTRATE 25 MG TAB PO SCH (09:07)
[2019-02-16] MEDS: ENALAPRIL MALEATE 5 MG TAB PO SCH (09:08)
[2019-02-16] MEDS: CYANOCOBALAMIN 1,000 MCG TAB PO SCH (09:08)
[2019-02-16 09:52] LABS: BASOPHILS % 0.5 % (0.0-1.0); EOSINOPHILS # (AUTO) 0.2 (0.0-0.4); EOSINOPHILS % 3.7 % (0.0-6.0); HEMOGLOBIN 7.7 g/dL (14.0-18.0); LYMPHOCYTES % 24.1 % (18.0-39.1); MEAN CORPUSCULAR HEMOGLOBIN 27.4 pg (28-32); MEAN CORPUSCULAR HGB CONC 30.8 g/dL (31-35); MONOCYTES # (AUTO) 0.4 (0.2-0.8); MONOCYTES % 9.4 % (4.4-11.3); NEUTROPHILS # (AUTO) 2.7 (2.1-6.9); NEUTROPHILS % 62.1 % (38.7-80.0); PLATELET COUNT 176 x10e3/uL (140-360); RED BLOOD COUNT 2.81 x10e6/uL (4.3-5.7); RED CELL DISTRIBUTION WIDTH 14.4 % (11.7-14.4)
[2019-02-16] MEDS ORDERED: FUROSEMIDE INJ 10 MG/ML 2 ML VIAL IV PRN (11:30)
[2019-02-16] MEDS ORDERED: SODIUM CHLORIDE 0.9% 250ML 250 ML IV NR (12:00)
[2019-02-16 13:30] LABS: % IRON SATURATION 18 % (15-50); IRON 77 ug/dL (65-175); TOTAL IRON BINDING CAPACITY 423 ug/dL (261-478); TRANSFERRIN 302 mg/dL (174-364)
[2019-02-16] MEDS ORDERED: SODIUM CHLORIDE 0.9% 1000ML 0 ML ONE (13:45)
[2019-02-16] MEDS: SODIUM BICARBONATE 650 MG TAB PO SCH (18:49)
[2019-02-16] MEDS: ATORVASTATIN 40 MG TAB PO SCH (21:00)
[2019-02-17] VITALS: BP 121/56
[2019-02-17 04:00] VITALS: BP 129/60
[2019-02-17] MEDS: SODIUM CHLORIDE 0.9% 1000ML 1,000 ML IV SCH (04:53)
[2019-02-17] MEDS: PANTOPRAZOL 40MG/SOD CHL 0.9% 50 ML IV SCH (04:53)
[2019-02-17 06:13] LABS: EOSINOPHILS # (AUTO) 0.2 (0.0-0.4); EOSINOPHILS % 4.8 % (0.0-6.0); HEMATOCRIT 26.4 % (38.2-49.6); HEMOGLOBIN 8.7 g/dL (14.0-18.0); MEAN CORPUSCULAR HEMOGLOBIN 28.6 pg (28-32); MEAN CORPUSCULAR VOLUME 86.8 fL (81-99); MONOCYTES # (AUTO) 0.6 (0.2-0.8); MONOCYTES % 13.6 % (4.4-11.3); NEUTROPHILS # (AUTO) 2.3 (2.1-6.9); NEUTROPHILS % 56.4 % (38.7-80.0); PLATELET COUNT 145 x10e3/uL (140-360); RED BLOOD COUNT 3.04 x10e6/uL (4.3-5.7); RED CELL DISTRIBUTION WIDTH 14.3 % (11.7-14.4)
[2019-02-17] MEDS: INSULIN REGULAR, HUMAN 100 UNIT/1 ML 3ML VIAL SQ SCH ×2 (07:30→11:45)
[2019-02-17 08:12] VITALS: BP 137/62
[2019-02-17] MEDS: METOPROLOL TARTRATE 25 MG TAB PO SCH (08:42)
[2019-02-17] MEDS: ENALAPRIL MALEATE 5 MG TAB PO SCH (08:42)
[2019-02-17] MEDS: SODIUM BICARBONATE 650 MG TAB PO SCH (08:42)
[2019-02-17] MEDS: ISOSORBIDE DINITRATE 20 MG TAB PO SCH (08:42)
[2019-02-17] MEDS: CYANOCOBALAMIN 1,000 MCG TAB PO SCH (08:42)
[2019-02-17] MEDS: GABAPENTIN 300 MG CAP PO SCH (08:42)
[2019-02-17 09:10] VITALS: BP 137/62
[2019-02-17] MEDS: IRON SUCROSE 100 MG in SODIUM CHLORIDE 0.9% 100 ML 100 ML IV SCH (09:52)
[2019-02-17 11:32] VITALS: BP 104/54
== END 2019-02-17 12:07 | disposition home or self-care (01) | DRG 378 ==
LOC: ER 09:25 → ERHOLD 13:03 → MED/SURG3 14:43
PROC: 0DB98ZX Excision of Duodenum, Via Natural or Artificial Opening Endoscopic, Diagnostic (ICD-10-PCS; 2019-02-15)
PROC: 0DB78ZX Excision of Stomach, Pylorus, Via Natural or Artificial Opening Endoscopic, Diagnostic (ICD-10-PCS; 2019-02-15)
PROC: 0DB68ZX Excision of Stomach, Via Natural or Artificial Opening Endoscopic, Diagnostic (ICD-10-PCS; 2019-02-15)
PROC: 0W3P8ZZ Control Bleeding in Gastrointestinal Tract, Via Natural or Artificial Opening Endoscopic (ICD-10-PCS; principal; 2019-02-15 11:29)
PROC: 0DBK8ZX Excision of Ascending Colon, Via Natural or Artificial Opening Endoscopic, Diagnostic (ICD-10-PCS; 2019-02-15 11:29)
PROC: 0DBN8ZX Excision of Sigmoid Colon, Via Natural or Artificial Opening Endoscopic, Diagnostic (ICD-10-PCS; 2019-02-15 11:29)
PROC: 0DBM8ZX Excision of Descending Colon, Via Natural or Artificial Opening Endoscopic, Diagnostic (ICD-10-PCS; 2019-02-15 11:29)
PROC: 30233N1 Transfusion of Nonautologous Red Blood Cells into Peripheral Vein, Percutaneous Approach (ICD-10-PCS; 2019-02-16)
DX: K55.21 Angiodysplasia of colon with hemorrhage (principal); N17.9 Acute kidney failure, unspecified; K57.30 Diverticulosis of large intestine without perforation or abscess without bleeding; K64.8 Other hemorrhoids; E87.5 Hyperkalemia; K44.9 Diaphragmatic hernia without obstruction or gangrene; K29.70 Gastritis, unspecified, without bleeding; K20.9 Esophagitis, unspecified; D50.0 Iron deficiency anemia secondary to blood loss (chronic); I25.10 Atherosclerotic heart disease of native coronary artery without angina pectoris; F17.200 Nicotine dependence, unspecified, uncomplicated; E11.22 Type 2 diabetes mellitus with diabetic chronic kidney disease; I12.9 Hypertensive chronic kidney disease with stage 1 through stage 4 chronic kidney disease, or unspecified chronic kidney disease; N18.3 Chronic kidney disease, stage 3 (moderate); K52.9 Noninfective gastroenteritis and colitis, unspecified; E11.21 Type 2 diabetes mellitus with diabetic nephropathy; Z95.5 Presence of coronary angioplasty implant and graft; Z86.010 Personal history of colon polyps; Z79.84 Long term (current) use of oral hypoglycemic drugs; Z79.02 Long term (current) use of antithrombotics/antiplatelets
CPT/HCPCS: 36415; 43239; 45378; 45380; 45388; 71046; 76770; 80048; 80053; 81001; 82550; 82553; 82570; 82607; 82728; 82746; 82948; 83540; 83630; 83993; 84156; 84466; 84484; 84550; 85014; 85018; 85025; 85045; 85610; 85730; 86850; 86900; 86920; 87045; 87177; 87493; 88305; 88312; 93005; 96365; 99284; J1610; J1756; J1940; J1980; J2001; J2250; J2370; J7030; J7050; J7799; P9016

== ENCOUNTER → 2021-03-23 | Day surgery (SDC) | payer MEDICARE, BC ==
[2021-03-20 14:20] LABS: BASOPHILS # (AUTO) 0.1 (0.0-0.1); EOSINOPHILS # (AUTO) 0.3 (0.0-0.4); EOSINOPHILS % 4.3 % (0.0-6.0); HEMATOCRIT 35.8 % (38.2-49.6); HEMOGLOBIN 11.5 g/dL (14.0-18.0); LYMPHOCYTES # (AUTO) 1.6 (1.0-3.2); LYMPHOCYTES % 27.1 % (18.0-39.1); MEAN CORPUSCULAR HEMOGLOBIN 28.5 pg (28-32); MEAN CORPUSCULAR HGB CONC 32.1 g/dL (31-35); MEAN CORPUSCULAR VOLUME 88.6 fL (81-99); MONOCYTES # (AUTO) 0.6 (0.2-0.8); MONOCYTES % 10.3 % (4.4-11.3); NEUTROPHILS # (AUTO) 3.3 (2.1-6.9); PLATELET COUNT 153 x10e3/uL (140-360); RED BLOOD COUNT 4.04 x10e6/uL (4.3-5.7); RED CELL DISTRIBUTION WIDTH 14.6 % (11.7-14.4)
[~2021-03-23] MED LIST: ATORVASTATIN CA40 MG PO; CLOPIDOGREL75 MG PO; FENTANYL CITRATE/PF 100MCG/2 ML INJ ONE; GABAPENTIN300 MG PO; GEMFIBROZIL600 MG PO; ISOSORBIDE MONO10 MG PO; LIDOCAINE HCL 2% LOCAL INJ 5 ML SDV VIAL INJ ONE; LOPRESSOR25 MG PO; METFORMIN HCL1000 MG PO; METOCLOPRAMIDE HCL 10 MG/2ML VIAL ONE; MIDAZOLAM HCL 2 MG/2 ML VIAL ONE; NAPROXEN500 MG PO; NITROGLYCERIN0.4 MG SL; PANTOPRAZOLE SO40 MG PO; PROPOFOL IV EMULSION 10 MG/ML 20 ML VIAL ONE; RANEXA500 MG PO; SODIUM CHLORIDE 0.9% 50ML 50 ML ONE; VASOTEC5 MG PO
[2021-03-23 08:45] VITALS: BP 100/59
== END | disposition home or self-care (01) ==
LOC: ENDO 06:19
PROVIDERS: ATTEND Internal Medicine Gastroenterology
DX: K29.50 Unspecified chronic gastritis without bleeding (principal); K20.90 Esophagitis, unspecified without bleeding; K29.60 Other gastritis without bleeding; K44.9 Diaphragmatic hernia without obstruction or gangrene; K31.89 Other diseases of stomach and duodenum; K21.9 Gastro-esophageal reflux disease without esophagitis; Z86.010 Personal history of colon polyps; G47.33 Obstructive sleep apnea (adult) (pediatric); E11.9 Type 2 diabetes mellitus without complications; I25.10 Atherosclerotic heart disease of native coronary artery without angina pectoris; I25.2 Old myocardial infarction; I10 Essential (primary) hypertension; E78.5 Hyperlipidemia, unspecified; F17.210 Nicotine dependence, cigarettes, uncomplicated; Z79.02 Long term (current) use of antithrombotics/antiplatelets; Z79.84 Long term (current) use of oral hypoglycemic drugs; Z95.5 Presence of coronary angioplasty implant and graft; Z01.812 Encounter for preprocedural laboratory examination; Z68.26 Body mass index [BMI] 26.0-26.9, adult
CPT/HCPCS: 36415 ×2; 43239; 43450; 82948; 85025; 88305; 88312; C9113; J2001; J2250; J2704; J2765; J3010

== ENCOUNTER → 2021-06-28 | Outpatient (CLI) | payer MEDICARE, BC ==
[~2021-06-28] MED LIST changes: -FENTANYL CITRATE/PF 100MCG/2 ML INJ ONE; +IOPAMIDOL 370 MG/ML 200 ML INFUS..BTL INJ ONE; -LIDOCAINE HCL 2% LOCAL INJ 5 ML SDV VIAL INJ ONE; -METOCLOPRAMIDE HCL 10 MG/2ML VIAL ONE; -MIDAZOLAM HCL 2 MG/2 ML VIAL ONE; -PROPOFOL IV EMULSION 10 MG/ML 20 ML VIAL ONE
[2021-06-28 08:16] LABS: CREATININE, SERUM 0.9 mg/dL (0.72-1.25)
== END ==
LOC: CT 07:19
PROVIDERS: ATTEND Internal Medicine Gastroenterology
DX: K29.70 Gastritis, unspecified, without bleeding (principal); R10.10 Upper abdominal pain, unspecified
CPT/HCPCS: 36415; 74160; 82565; 84520; Q9967

== ENCOUNTER → 2022-02-27 | Day surgery (SDC) | payer MEDICARE, BC ==
[2022-02-25 08:08] LABS: BASOPHILS # (AUTO) 0.1 (0.0-0.1); BASOPHILS % 1.3 % (0.0-1.0); EOSINOPHILS # (AUTO) 0.3 (0.0-0.4); EOSINOPHILS % 4.9 % (0.0-6.0); HEMOGLOBIN 12.4 g/dL (14.0-18.0); LYMPHOCYTES # (AUTO) 1.6 (1.0-3.2); LYMPHOCYTES % 24.8 % (18.0-39.1); MEAN CORPUSCULAR HEMOGLOBIN 28.2 pg (28-32); MEAN CORPUSCULAR VOLUME 91.1 fL (81-99); MONOCYTES # (AUTO) 0.6 (0.2-0.8); MONOCYTES % 8.9 % (4.4-11.3); NEUTROPHILS # (AUTO) 3.8 (2.1-6.9); NEUTROPHILS % 59.8 % (38.7-80.0); PLATELET COUNT 169 x10e3/uL (140-360); RED BLOOD COUNT 4.39 x10e6/uL (4.3-5.7); RED CELL DISTRIBUTION WIDTH 14.9 % (11.7-14.4)
[~2022-02-27] MED LIST changes: +DEXILANT60 MG PO; +EYE LUBRICANT OPTH OINT 3.5GM TUBE OP ONE; +FENTANYL CITRATE/PF 100MCG/2 ML INJ ONE; -IOPAMIDOL 370 MG/ML 200 ML INFUS..BTL INJ ONE; +LIDOCAINE HCL 2% LOCAL INJ 5 ML SDV VIAL INJ ONE; +METOCLOPRAMIDE HCL 10 MG/2ML VIAL ONE; +MIDAZOLAM HCL 2 MG/2 ML VIAL ONE; +PROPOFOL IV EMULSION 10 MG/ML 20 ML VIAL ONE; +SIMETHICONE 40 MG/0.6 ML BTL ONE; -SODIUM CHLORIDE 0.9% 50ML 50 ML ONE; +SUCRALFATE1 GM PO; +VASCEPA1 GM PO; +VELTASSA8.4 GM PO
[2022-02-27 08:40] VITALS: BP 106/62
== END | disposition home or self-care (01) ==
LOC: ENDO 07:09
PROVIDERS: ATTEND Internal Medicine Gastroenterology
DX: K22.2 Esophageal obstruction (principal); K29.70 Gastritis, unspecified, without bleeding; K44.9 Diaphragmatic hernia without obstruction or gangrene; K21.9 Gastro-esophageal reflux disease without esophagitis; Q40.8 Other specified congenital malformations of upper alimentary tract; Z71.3 Dietary counseling and surveillance; G47.33 Obstructive sleep apnea (adult) (pediatric); I10 Essential (primary) hypertension; I25.118 Atherosclerotic heart disease of native coronary artery with other forms of angina pectoris; E78.00 Pure hypercholesterolemia, unspecified; E11.9 Type 2 diabetes mellitus without complications; R00.1 Bradycardia, unspecified; F17.210 Nicotine dependence, cigarettes, uncomplicated; Z71.6 Tobacco abuse counseling; Z01.810 Encounter for preprocedural cardiovascular examination; Z01.812 Encounter for preprocedural laboratory examination; Z20.822 Contact with and (suspected) exposure to COVID-19; Z79.02 Long term (current) use of antithrombotics/antiplatelets; Z79.84 Long term (current) use of oral hypoglycemic drugs; Z68.26 Body mass index [BMI] 26.0-26.9, adult; Z95.5 Presence of coronary angioplasty implant and graft
CPT/HCPCS: 36415 ×2; 43239; 43450; 82948; 85025; 88305; 93005; C9113; J2001; J2250; J2704; J2765; J3010; U0002

== ENCOUNTER → 2022-08-06 | Outpatient (CLI) | payer MEDICARE, BC ==
[~2022-08-06] MED LIST changes: -EYE LUBRICANT OPTH OINT 3.5GM TUBE OP ONE; -FENTANYL CITRATE/PF 100MCG/2 ML INJ ONE; +IOPAMIDOL 370 MG/ML 100 ML INFUS..BTL INJ ONE; -LIDOCAINE HCL 2% LOCAL INJ 5 ML SDV VIAL INJ ONE; -METOCLOPRAMIDE HCL 10 MG/2ML VIAL ONE; -MIDAZOLAM HCL 2 MG/2 ML VIAL ONE; -PROPOFOL IV EMULSION 10 MG/ML 20 ML VIAL ONE; -SIMETHICONE 40 MG/0.6 ML BTL ONE
[2022-08-06 12:32] LABS: CREATININE, SERUM 1.14 mg/dL (0.72-1.25)
== END ==
LOC: CT 11:46
PROVIDERS: ATTEND Internal Medicine Gastroenterology
DX: K52.9 Noninfective gastroenteritis and colitis, unspecified (principal); K20.90 Esophagitis, unspecified without bleeding
CPT/HCPCS: 36415; 74177; 82565; 84520; Q9967

== ENCOUNTER → 2023-07-10 | Outpatient (REF) | payer MEDICARE, BC ==
[~2023-07-10] MED LIST changes: -IOPAMIDOL 370 MG/ML 100 ML INFUS..BTL INJ ONE
== END ==
LOC: DX 08:25
PROVIDERS: ATTEND Internal Medicine Gastroenterology
DX: R14.0 Abdominal distension (gaseous) (principal)
CPT/HCPCS: 74250

== ENCOUNTER → 2024-07-07 | Day surgery (SDC) | payer MEDICARE, BC ==
[2024-07-02 10:58] LABS: BASOPHILS # (AUTO) 0.1 (0.0-0.1); BASOPHILS % 1.1 % (0.0-1.0); EOSINOPHILS # (AUTO) 0.2 (0.0-0.4); EOSINOPHILS % 4.1 % (0.0-6.0); HEMATOCRIT 39.9 % (38.2-49.6); HEMOGLOBIN 12.5 g/dL (14.0-18.0); LYMPHOCYTES # (AUTO) 1.7 (1.0-3.2); LYMPHOCYTES % 31.8 % (18.0-39.1); MEAN CORPUSCULAR HEMOGLOBIN 29.9 pg (28-32); MEAN CORPUSCULAR HGB CONC 31.3 g/dL (31-35); MEAN CORPUSCULAR VOLUME 95.5 fL (81-99); MONOCYTES # (AUTO) 0.4 (0.2-0.8); MONOCYTES % 8.1 % (4.4-11.3); NEUTROPHILS # (AUTO) 2.9 (2.1-6.9); NEUTROPHILS % 54.7 % (38.7-80.0); PLATELET COUNT 142 x10e3/uL (140-360); RED BLOOD COUNT 4.18 x10e6/uL (4.3-5.7); RED CELL DISTRIBUTION WIDTH 12.8 % (11.7-14.4); WHITE BLOOD COUNT 5.31 x10e3/uL (4.8-10.8)
[~2024-07-07] MED LIST changes: +ASPIRIN81 MG PO; +EPHEDRINE SULFATE INJ 50 MG/ML VIAL ONE; +LIDOCAINE HCL 2% LOCAL INJ 5 ML SDV VIAL INJ ONE; +METOCLOPRAMIDE HCL 10 MG/2ML VIAL ONE; +NEURONTIN300 MG PO; +PROPOFOL IV EMULSION 10 MG/ML 20 ML VIAL ONE; +PROPOFOL IV EMULSION 50 ML IV ONE; +TEGRETOL200 MG PO
[2024-07-07] MEDS: LACTATED RINGER'S 1,000 ML ONE (10:12)
[2024-07-07 14:53] VITALS: BP 132/76; PULSE 72; RESP 17; O2SAT 97
== END | disposition home or self-care (01) ==
LOC: OR 10:09
PROVIDERS: ATTEND Internal Medicine Gastroenterology
DX: K29.50 Unspecified chronic gastritis without bleeding (principal); K52.9 Noninfective gastroenteritis and colitis, unspecified; K31.A11 Gastric intestinal metaplasia without dysplasia, involving the antrum; K44.9 Diaphragmatic hernia without obstruction or gangrene; Q40.2 Other specified congenital malformations of stomach; K57.30 Diverticulosis of large intestine without perforation or abscess without bleeding; K21.9 Gastro-esophageal reflux disease without esophagitis; D64.9 Anemia, unspecified; G47.33 Obstructive sleep apnea (adult) (pediatric); E11.9 Type 2 diabetes mellitus without complications; I25.10 Atherosclerotic heart disease of native coronary artery without angina pectoris; I10 Essential (primary) hypertension; E78.5 Hyperlipidemia, unspecified; F17.200 Nicotine dependence, unspecified, uncomplicated; Z01.810 Encounter for preprocedural cardiovascular examination; Z01.812 Encounter for preprocedural laboratory examination; Z79.82 Long term (current) use of aspirin; Z79.84 Long term (current) use of oral hypoglycemic drugs; Z79.899 Other long term (current) drug therapy; Z95.5 Presence of coronary angioplasty implant and graft
CPT/HCPCS: 36415; 43239; 45380; 85025; 88305; 88342; 93005; J2003; J2470; J2704 ×2; J2765; J7121; 45378; 88312